=== PATIENT | male | born 1960 | race Caucasian/White ===

== ENCOUNTER 2017-08-04 09:27 | Inpatient (IN) | payer OTHER ==
[2017-08-04 12:55] VITALS: BMI 25.4
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
[2017-08-04] MEDS ORDERED: diphenhydrAMINE HCL 50 MG CAPSULE PO PRN (15:24)
[2017-08-04] MEDS ORDERED: MAGNESIUM HYDROX 2400MG/30ML ORAL SUSPENSION 30 ML CUP PO PRN (15:24)
[2017-08-04] MEDS ORDERED: guaiFENesin/D-METHORPHAN HB 10 ML UNIT-DOSE CUPS PO PRN (15:24)
[2017-08-04] MEDS ORDERED: MENTHOL/PHENOL 1 EACH UD MM PRN (15:24)
[2017-08-04] MEDS ORDERED: MAG HYDROX/AL HYDROX/SIMETH 30 ML UNIT-DOSE CUP PO PRN (15:24)
[2017-08-04] MEDS ORDERED: hydrOXYzine PAMOATE 50 MG CAPSULE (FP) PO PRN (15:24)
[2017-08-04] MEDS ORDERED: P-EPHED 60MG/TRIPROLIDI 2.5MG TABLET PO PRN (15:24)
[2017-08-04] MEDS ORDERED: IBUPROFEN 400 MG TABLET (FP) PO PRN (15:24)
[2017-08-04] MEDS ORDERED: MAGNESIUM CITRATE 300 ML BOTTLE PO PRN (15:24)
[2017-08-04] MEDS ORDERED: ACETAMINOPHEN 325 MG TABLET (FP) PO PRN (15:24)
[2017-08-04] MEDS ORDERED: chlordiazePOXIDE HCL 25 MG CAPSULE PO PRN (15:24)
[2017-08-04] MEDS ORDERED: LOPERAMIDE HCL 2 MG CAPSULE PO PRN (15:24)
[2017-08-04] MEDS ORDERED: NICOTINE POLACRILEX 4 MG GUM BC PRN (15:24)
[2017-08-04] MEDS ORDERED: ALBUTEROL SO4 18 GM HFA INHALER IH PRN (15:26)
[2017-08-04] MEDS ORDERED: chlordiazePOXIDE HCL 25 MG CAPSULE PO ONE (16:00)
[2017-08-04] MEDS: chlordiazePOXIDE HCL 25 MG CAPSULE PO SCH ×2 (17:40→22:22)
[2017-08-04] MEDS: THIAMINE HCL 100 MG TABLET (FP) PO SCH (22:22)
[2017-08-05] MEDS ORDERED: ALBUTEROL SO4 2.5/IPRATROPIUM 0.5 INH SOL 3 ML VIAL.NEB. NEB PRN (03:22)
[2017-08-05] MEDS: chlordiazePOXIDE HCL 25 MG CAPSULE PO SCH ×4 (05:53→22:18)
[2017-08-05 09:22] LABS: MCHC 32.9 g/dl (32.0-35.9); MEAN CELL VOLUME 82.1 fl (80-96); MEAN PLT VOLUME 9.2 fl (7.5-11.1); PLATELET COUNT 257 K/MM3 (134-434); RDW 16.2 % (11.9-15.9); WHITE BLOOD COUNT 9.6 K/mm3 (4.0-10.0)
--- NOTE | 2017-08-05 10:11 | PN ---
[facility] CIWA - CIWA Score Nausea/Vomitin-No Nausea/No Vomiting Muscle Tremors: 4-Moderate,w/Arms Extend Anxiety: 3 Agitation: 3 Paroxysmal Sweats: 3 Orientation: 1-Uncertain about Date Tacttile Disturbances: 0-None Auditory Disturbances: 0-None Visual Disturbances: 0-None Headache: 0-None Present CIWA-Ar Total Score: 14 BHS Progress Note (SOAP) Subjective: Anxiety,tremors,sweating,interrupted sleep,restless Objective: 08/05/17 10:10 Vital Signs - 8 hr 08/05/17 08/05/17 06:00 09:48 Temperature 99.7 F H 96.7 F L Pulse Rate 74 105 H Respiratory 18 18 Rate Blood Pressure 140/69 133/67 Laboratory Last Values WBC 9.6 K/mm3 (4.0-10.0) 08/05/17 06:00 RBC 5.00 M/mm3 (4.00-5.60) 08/05/17 06:00 Hgb 13.5 GM/dL (11.7-16.9) D 08/05/17 06:00 Hct 41.0 % (35.4-49) 08/05/17 06:00 MCV 82.1 fl (80-96) 08/05/17 06:00 MCH 27.0 pg (25.7-33.7) 08/05/17 06:00 MCHC 32.9 g/dl (32.0-35.9) 08/05/17 06:00 RDW 16.2 % (11.9-15.9) H 08/05/17 06:00 Plt Count 257 K/MM3 (134-434) 08/05/17 06:00 MPV 9.2 fl (7.5-11.1) D 08/05/17 06:00 labs noted Assessment: 08/05/17 10:10 Withdrawal sx. Plan: Continue detox
--- NOTE | 2017-08-05 10:24 | CONSULT ---
[facility] Psychiatric Consult - Data Date of interview: 08/05/17 Admission source: [facility] for [facility] 56 y/o male seeking detox treatment on for alcohol and marijuana dependence.Patient is single without children,domiciled ([facility] residence),unemployed and supported on SSI benefits. Substance Abuse History: Discussed with patient.Mr Jauregui endorses a long standing history of alcohol abuse and sporadic use of marijuana (K2).Confirmed this [facility] report. Smoking history: Current every day smoker. Have you smoked in the past 12 months: Yes. Aproximately how many cigarettes per day: 30. Hx Chewing Tobacco Use: No. Initiated information on smoking cessation: Yes. ' Breaking Loose' booklet given: 08/04/17. - Substance & Tx. History. Hx Alcohol Use: Yes. Hx Substance Use: Yes. Substance Use Type: Alcohol, Marijuana. Hx Substance Use Treatment: Yes (last detox [facility] 2yrs ago). - Substances Abused. Alcohol-vodka/4 warren. Route: Oral. Frequency: Daily. Amount used: 1/2 pt./8 (24 oz.). Age of first use: 9. Date of Last Use: . K2. Route: Smoking. Frequency: 1-3 times last 30 days. Amount used : $10. Age of first use: 56. Date of Last Use: 08/02/17 Medical History: Hypertension,anemia,benign prostatic hyperplasia,withdrawal- related seizures,GERD and bronchial asthma. Psychiatric History: Onset of psychiatric disturbances : age [age].Patient reports a history of multiple psychiatric hospitalizations.He is known to [facility].Diagnosed with " Schizophrenia and Bipolar Disorder." Mr Jauregui gets his outpatient psychiatric services at the [facility] in the [place].States that olanzapine and klonopin are his medications.Not a reliable historian.Has no recollection of doses or date of most recent intake.Patient denies history of suicide attempts. Physical/Sexual Abuse/Trauma History: Patient denies. Additional Comment: Drug Screen is negative. Mental Status Exam - Mental Status Exam Alert and Oriented to: Time, Place, Person Cognitive Function: Grossly Intact Patient Appearance: Well Groomed (edentulous ; appears much older than his stated age) Mood: Withdrawn, Hopeful Affect: Appropriate, Normal Range Patient Behavior: Fatigued, Cooperative Speech Pattern: Clear (bilingual) Voice Loudness: Normal Thought Process: Goal Oriented Thought Disorder: Not Present Hallucinations: Denies Suicidal Ideation: Denies Homicidal Ideation: Denies Insight/Judgement: Poor Sleep: Well Appetite: Good Muscle strength/Tone: Normal Gait/Station: Normal Psychiatric Findings - Problem List ([place] 1, 2,3) (1) Alcohol dependence with uncomplicated withdrawal Current Visit: Yes Status: Acute (2) Nicotine dependence Current Visit: Yes Status: Acute Qualifiers: Nicotine product type: cigarettes Substance use status: in withdrawal Qualified Code(s): F17.213 - Nicotine dependence, cigarettes, with withdrawal; F17.213 - Nicotine dependence, cigarettes, with withdrawal (3) Asthma Current Visit: Yes Status: Chronic (4) Benign prostate hyperplasia Current Visit: Yes Status: Chronic Qualifiers: Lower urinary tract symptom detail: unspecified (5) Substance induced mood disorder Current Visit: Yes Status: Acute - Initial Treatment Plan Initial Treatment Plan: Psychoeducation.Detoxification.Observation.
[2017-08-05] MEDS: FERROUS SO4 325 MG TABLET (FP) PO SCH (10:42)
[2017-08-05] MEDS: PRENATAL VITAMINS W/ FOLIC ACID TABLET (FP) PO SCH (10:42)
[2017-08-05] MEDS: NICOTINE 21 MG/24 HOURS TOPICAL PATCH TD SCH (10:42)
[2017-08-05 10:48] LABS: ALBUMIN 3.4 g/dl (3.4-5.0); ANION GAP 13 (8-16); CALCIUM 8.7 mg/dL (8.5-10.1); CO2 22 mmol/L (21-32); GLUCOSE,RANDOM 78 mg/dL (74-106)
[2017-08-05 10:54] LABS: ALK PHOS 103 U/L (45-117); CREATININE 1.1 mg/dL (0.7-1.3); SGOT/AST 68 U/L (15-37); SGPT/ALT 50 U/L (12-78); TOT PROT 6.4 g/dl (6.4-8.2)
--- NOTE | 2017-08-05 13:22 | EKG ---
Test Reason : Blood Pressure : / mmHG Vent. Rate : 067 BPM Atrial Rate : 067 BPM P-R Int : 138 ms QRS Dur : 096 ms QT Int : 416 ms P-R-T Axes : 052 061 054 degrees QTc Int : 439 ms NORMAL SINUS RHYTHM NORMAL ECG NO PREVIOUS ECGS AVAILABLE Confirmed by YARED EVANS, DARRYL ([id number]) on 08/05/2017 1:21:45 PM Referred By: Confirmed By:DARRYL VAIL MD
[2017-08-05] MEDS: THIAMINE HCL 100 MG TABLET (FP) PO SCH (22:18)
[2017-08-06] MEDS: chlordiazePOXIDE HCL 25 MG CAPSULE PO SCH ×2 (05:54→10:07)
[2017-08-06] MEDS: FERROUS SO4 325 MG TABLET (FP) PO SCH (07:31)
[2017-08-06] MEDS: NICOTINE 21 MG/24 HOURS TOPICAL PATCH TD SCH (10:07)
[2017-08-06] MEDS: PRENATAL VITAMINS W/ FOLIC ACID TABLET (FP) PO SCH (10:07)
--- NOTE | 2017-08-06 15:12 | PN ---
S CIWA - CIWA Score Nausea/Vomitin Muscle Tremors: 4-Moderate,w/Arms Extend Anxiety: 4-Mod. Anxious/Guarded Agitation: 4-Moderately Restless Paroxysmal Sweats: 3 Orientation: 0-Oriented Tacttile Disturbances: 1-Very Mild Itch/Numbness Auditory Disturbances: 0-None Visual Disturbances: 0-None Headache: 4-Moderately Severe CIWA-Ar Total Score: 23 BHS Progress Note (SOAP) Subjective: Sweating, nausea, tremor, chills, headache (05/25), interrupted sleep Objective: 08/06/17 15:10 Last Vital Signs Temp Pulse Resp BP Pulse Ox 97.3 F L 87 18 124/63 08/06/17 13:10 08/06/17 13:10 08/06/17 13:10 08/06/17 13:10 Laboratory Tests 08/05/17 08/05/17 08/05/17 06:00 06:00 06:00 WBC 9.6 RBC 5.00 Hgb 13.5 D Hct 41.0 MCV 82.1 MCH 27.0 MCHC 32.9 RDW 16.2 H Plt Count 257 MPV 9.2 D Sodium 139 Potassium 3.7 Chloride 104 Carbon Dioxide 22 Anion Gap 13 BUN 19 H Creatinine 1.1 Creat Clearance w eGFR > 60 Random Glucose 78 Calcium 8.7 Total Bilirubin 1.0 D AST 68 H D ALT 50 D Alkaline Phosphatase 103 D Total Protein 6.4 Albumin 3.4 RPR Titer Nonreactive Labs noted Assessment: 08/06/17 15:11 Withdrawal symptoms Plan: Continue detox
[2017-08-06] MEDS: chlordiazePOXIDE 5 MG CAPSULE PO SCH ×2 (17:10→22:18)
[2017-08-06 17:43] LABS: URINE APPEARANCE CLEAR; URINE BILIRUBIN NEGATIVE (NEGATIVE); URINE BLOOD NEGATIVE (NEGATIVE); URINE COLOR YELLOW; URINE GLUCOSE (UA) NEGATIVE (NEGATIVE); URINE KETONE NEGATIVE (NEGATIVE); URINE NITRITE NEGATIVE (NEGATIVE); URINE PROTEIN NEGATIVE (NEGATIVE); URINE UROBILINOGEN NEGATIVE mg/dL (0.2-1.0)
[2017-08-06 19:12] LABS: URINE LEUK ESTERASE Negative (NEGATIVE)
[2017-08-06] MEDS: THIAMINE HCL 100 MG TABLET (FP) PO SCH (22:17)
[2017-08-07] MEDS: chlordiazePOXIDE 5 MG CAPSULE PO SCH ×2 (05:55→10:25)
[2017-08-07] MEDS: FERROUS SO4 325 MG TABLET (FP) PO SCH (07:13)
[2017-08-07] MEDS: PRENATAL VITAMINS W/ FOLIC ACID TABLET (FP) PO SCH (10:25)
[2017-08-07] MEDS: NICOTINE 21 MG/24 HOURS TOPICAL PATCH TD SCH (10:25)
--- NOTE | 2017-08-07 11:38 | PN ---
BHS Progress Note (SOAP) Subjective: OOB WITH STAEDY GAIT. ALERT O X 3. DECREASED TREMORS. Objective: 08/07/17 11:37 Vital Signs Temperature 96.7 F L 08/07/17 10:19 Pulse Rate 72 08/07/17 10:19 Respiratory Rate 16 08/07/17 10:19 Blood Pressure 125/72 08/07/17 10:19 O2 Sat by Pulse Oximetry (%) Laboratory Last Values WBC 9.6 K/mm3 (4.0-10.0) 08/05/17 06:00 RBC 5.00 M/mm3 (4.00-5.60) 08/05/17 06:00 Hgb 13.5 GM/dL (11.7-16.9) D 08/05/17 06:00 Hct 41.0 % (35.4-49) 08/05/17 06:00 MCV 82.1 fl (80-96) 08/05/17 06:00 MCH 27.0 pg (25.7-33.7) 08/05/17 06:00 MCHC 32.9 g/dl (32.0-35.9) 08/05/17 06:00 RDW 16.2 % (11.9-15.9) H 08/05/17 06:00 Plt Count 257 K/MM3 (134-434) 08/05/17 06:00 MPV 9.2 fl (7.5-11.1) D 08/05/17 06:00 Sodium 139 mmol/L (136-145) 08/05/17 06:00 Potassium 3.7 mmol/L (3.5-5.1) 08/05/17 06:00 Chloride 104 mmol/L (98-107) 08/05/17 06:00 Carbon Dioxide 22 mmol/L (21-32) 08/05/17 06:00 Anion Gap 13 (8-16) 08/05/17 06:00 BUN 19 mg/dL (7-18) H 08/05/17 06:00 Creatinine 1.1 mg/dL (0.7-1.3) 08/05/17 06:00 Creat Clearance w eGFR > 60 (>60) 08/05/17 06:00 Random Glucose 78 mg/dL (74-106) 08/05/17 06:00 Calcium 8.7 mg/dL (8.5-10.1) 08/05/17 06:00 Total Bilirubin 1.0 mg/dL (0.2-1.0) D 08/05/17 06:00 AST 68 U/L (15-37) H D 08/05/17 06:00 ALT 50 U/L (12-78) D 08/05/17 06:00 Alkaline Phosphatase 103 U/L (45-117) D 08/05/17 06:00 Total Protein 6.4 g/dl (6.4-8.2) 08/05/17 06:00 Albumin 3.4 g/dl (3.4-5.0) 08/05/17 06:00 Urine Color Yellow 08/06/17 11:10 Urine Appearance Clear 08/06/17 11:10 Urine pH 7.0 (5.0-8.0) 08/06/17 11:10 Ur Specific [place] 1.015 (1.005-1.025) 08/06/17 11:10 Urine Protein Negative (NEGATIVE) 08/06/17 11:10 Urine Glucose (UA) Negative (NEGATIVE) 08/06/17 11:10 Urine Ketones Negative (NEGATIVE) 08/06/17 11:10 Urine Blood Negative (NEGATIVE) 08/06/17 11:10 Urine Nitrite Negative (NEGATIVE) 08/06/17 11:10 Urine Bilirubin Negative (NEGATIVE) 08/06/17 11:10 Urine Urobilinogen Negative mg/dL (0.2-1.0) 08/06/17 11:10 Ur Leukocyte Esterase Negative (NEGATIVE) 08/06/17 11:10 RPR Titer Nonreactive (NONREACTIVE) 08/05/17 06:00 Assessment: 08/07/17 11:37 DECREASED WITHDRAWAL SX Plan: CONTINUE DETOX
[2017-08-07] MEDS: chlordiazePOXIDE HCL 10 MG CAPSULE PO SCH ×2 (17:25→22:09)
[2017-08-07] MEDS: THIAMINE HCL 100 MG TABLET (FP) PO SCH (22:09)
[2017-08-08] MEDS: chlordiazePOXIDE HCL 10 MG CAPSULE PO SCH (05:48)
[2017-08-08] MEDS: FERROUS SO4 325 MG TABLET (FP) PO SCH (07:47)
[2017-08-08 09:33] VITALS: BP 119/74; PULSE 70; TEMP 96.8
--- NOTE | 2017-08-08 11:50 | DS ---
[facility] Detox Discharge Summary Admission Date: 08/04/17 Discharge Date: 08/08/17 - History Present History: Alcohol Dependence Additional Comments: DETOX COMPLETED. ALERT O X 3. NAD. PT TO FOLLOW UP WITH PCP AT [facility] FOR MEDICAL MANAGEMENT OF COMORBID CONDITIONS. Pertinent Past History: BPH HX [place] ASTHMA SEIZURE HX ANEMIA - Physical Exam Results Vital Signs: Vital Signs Temperature 96.8 F L 08/08/17 09:32 Pulse Rate 70 08/08/17 09:32 Respiratory Rate 18 08/08/17 09:32 Blood Pressure 119/74 08/08/17 09:32 O2 Sat by Pulse Oximetry (%) Pertinent Admission Physical Exam Findings: WITHDRAWAL SX Laboratory Last Values WBC 9.6 K/mm3 (4.0-10.0) 08/05/17 06:00 RBC 5.00 M/mm3 (4.00-5.60) 08/05/17 06:00 Hgb 13.5 GM/dL (11.7-16.9) D 08/05/17 06:00 Hct 41.0 % (35.4-49) 08/05/17 06:00 MCV 82.1 fl (80-96) 08/05/17 06:00 MCH 27.0 pg (25.7-33.7) 08/05/17 06:00 MCHC 32.9 g/dl (32.0-35.9) 08/05/17 06:00 RDW 16.2 % (11.9-15.9) H 08/05/17 06:00 Plt Count 257 K/MM3 (134-434) 08/05/17 06:00 MPV 9.2 fl (7.5-11.1) D 08/05/17 06:00 Sodium 139 mmol/L (136-145) 08/05/17 06:00 Potassium 3.7 mmol/L (3.5-5.1) 08/05/17 06:00 Chloride 104 mmol/L (98-107) 08/05/17 06:00 Carbon Dioxide 22 mmol/L (21-32) 08/05/17 06:00 Anion Gap 13 (8-16) 08/05/17 06:00 BUN 19 mg/dL (7-18) H 08/05/17 06:00 Creatinine 1.1 mg/dL (0.7-1.3) 08/05/17 06:00 Creat Clearance w eGFR > 60 (>60) 08/05/17 06:00 Random Glucose 78 mg/dL (74-106) 08/05/17 06:00 Calcium 8.7 mg/dL (8.5-10.1) 08/05/17 06:00 Total Bilirubin 1.0 mg/dL (0.2-1.0) D 08/05/17 06:00 AST 68 U/L (15-37) H D 08/05/17 06:00 ALT 50 U/L (12-78) D 08/05/17 06:00 Alkaline Phosphatase 103 U/L (45-117) D 08/05/17 06:00 Total Protein 6.4 g/dl (6.4-8.2) 08/05/17 06:00 Albumin 3.4 g/dl (3.4-5.0) 08/05/17 06:00 Urine Color Yellow 08/06/17 11:10 Urine Appearance Clear 08/06/17 11:10 Urine pH 7.0 (5.0-8.0) 08/06/17 11:10 Ur Specific [place] 1.015 (1.005-1.025) 08/06/17 11:10 Urine Protein Negative (NEGATIVE) 08/06/17 11:10 Urine Glucose (UA) Negative (NEGATIVE) 08/06/17 11:10 Urine Ketones Negative (NEGATIVE) 08/06/17 11:10 Urine Blood Negative (NEGATIVE) 08/06/17 11:10 Urine Nitrite Negative (NEGATIVE) 08/06/17 11:10 Urine Bilirubin Negative (NEGATIVE) 08/06/17 11:10 Urine Urobilinogen Negative mg/dL (0.2-1.0) 08/06/17 11:10 Ur Leukocyte Esterase Negative (NEGATIVE) 08/06/17 11:10 RPR Titer Nonreactive (NONREACTIVE) 08/05/17 06:00 - Treatment Hospital Course: Detox Protocol Followed, Detoxed Safely, Responded well, Discharged Condition Good - Medication Discharge Medications: Ambulatory Orders Albuterol Sulfate Inhaler - [Ventolin Hfa *Inhaler*] 2 inh IH Q4H PRN 12/10/12 Ferrous Sulfate [Feosol] 325 mg PO DAILY 12/10/12 Trazodone HCl 50 mg PO HS 12/10/12 - Diagnosis (1) Alcohol dependence with uncomplicated withdrawal Status: Acute (2) Nicotine dependence Status: Acute Qualifiers: Nicotine product type: cigarettes Substance use status: in withdrawal Qualified Code(s): F17.213 - Nicotine dependence, cigarettes, with withdrawal; F17.213 - Nicotine dependence, cigarettes, with withdrawal (3) Asthma Status: Chronic (4) Benign prostate hyperplasia Status: Chronic Qualifiers: Lower urinary tract symptom detail: unspecified (5) Seizure Status: Suspected (6) hearing loss both ears post head trauma Status: Chronic (7) History of anemia Status: Chronic - AMA Did Patient Leave Against Medical Advice: No
== END 2017-08-08 09:30 | disposition home or self-care (01) | DRG 775 ==
LOC: YASAS 09:27 → Y3N 15:28
PROVIDERS: ADMIT Internal Medicine; ATTEND Internal Medicine
PROC: HZ2ZZZZ Detoxification Services for Substance Abuse Treatment (ICD-10-PCS; principal; 2017-08-04)
DX: F10.230 Alcohol dependence with withdrawal, uncomplicated (principal); F17.213 Nicotine dependence, cigarettes, with withdrawal; F31.9 Bipolar disorder, unspecified; F19.24 Other psychoactive substance dependence with psychoactive substance-induced mood disorder; I10 Essential (primary) hypertension; J45.909 Unspecified asthma, uncomplicated; N40.0 Benign prostatic hyperplasia without lower urinary tract symptoms; H91.93 Unspecified hearing loss, bilateral; K21.9 Gastro-esophageal reflux disease without esophagitis; D64.9 Anemia, unspecified; Z86.69 Personal history of other diseases of the nervous system and sense organs; Z91.013 Allergy to seafood; Z88.8 Allergy status to other drugs, medicaments and biological substances
CPT/HCPCS: 36415; 80053; 81003; 85027; 86593; 93005; 93010; 94640

== ENCOUNTER 2020-08-24 11:32 | Inpatient (IN) | payer OTHER ==
[2020-08-24] MEDS ORDERED: LACTATED RINGERS SOLUTION 1,000 ML/1,000 ML INFUS.BAG IV STA (14:48)
[2020-08-24 15:10] LABS: BASO % 0.7 % (0-2.0); EOS % 3.9 % (0-4.5); HEMATOCRIT 33.5 % (35.4-49); HEMOGLOBIN 11.3 GM/dL (11.7-16.9); LYMPH % 17.7 % (8-40); MCH 28.3 pg (25.7-33.7); MCHC 33.6 g/dl (32.0-35.9); MEAN CELL VOLUME 84.3 fl (80-96); MEAN PLT VOLUME 7.5 fl (7.5-11.1); MONO % 9.5 % (3.8-10.2); NEUT % 68.2 % (42.8-82.8); PLATELET COUNT 212 K/MM3 (134-434); RBC 3.98 M/mm3 (4.00-5.60); RDW 14.5 % (11.9-15.9); WHITE BLOOD COUNT 7.4 K/mm3 (4.0-10.0)
[2020-08-24 15:46] LABS: CHLORIDE 107 mmol/L (98-107); POTASSIUM 3.7 mmol/L (3.5-5.1); SODIUM 139 mmol/L (136-145)
[2020-08-24 15:48] LABS: ALBUMIN 2.7 g/dl (3.4-5.0); ANION GAP 7 MMOL/L (8-16); BLOOD UREA NITROGEN 16.2 mg/dL (7-18); CALCIUM 8.6 mg/dL (8.5-10.1); CO2 26 mmol/L (21-32); GLUCOSE,RANDOM 103 mg/dL (74-106)
[2020-08-24 15:51] LABS: SGOT/AST 14 U/L (15-37); SGPT/ALT 14 U/L (13-61)
[2020-08-24 15:52] LABS: CREATININE 1.3 mg/dL (0.55-1.3)
[2020-08-24 15:53] LABS: BILIRUBIN,TOTAL 0.5 mg/dL (0.2-1); TOT PROT 5.8 g/dl (6.4-8.2)
[2020-08-24 15:54] LABS: ALK PHOS 82 U/L (45-117)
[2020-08-24] MEDS ORDERED: FOLIC ACID 1 MG TABLET (FP) PO ONE (23:23)
[2020-08-24] MEDS ORDERED: THIAMINE HCL 100 MG TABLET (FP) PO ONE (23:23)
[2020-08-24] MEDS ORDERED: BISMUTH SUBSALICYLATE 524 MG/30 ML UD PO PRN (23:25)
[2020-08-24] MEDS ORDERED: LORazepam 0.5 MG TABLET PO PRN (23:25)
[2020-08-24] MEDS ORDERED: ALBUTEROL SO4 HFA INHALER IH PRN (23:25)
[2020-08-25] MEDS ORDERED: THIAMINE HCL 100 MG TABLET (FP) ONE (00:33)
[2020-08-25] MEDS ORDERED: FOLIC ACID 1 MG TABLET (FP) ONE (00:33)
[2020-08-25] MEDS ORDERED: chlordiazePOXIDE HCL 10 MG CAPSULE PO SCH (05:00)
[2020-08-25] MEDS ORDERED: chlordiazePOXIDE 5 MG CAPSULE ONE (05:32)
[2020-08-25 06:41] LABS: PH,URINE 7.5 (5.0-8.0); URINE APPEARANCE CLEAR; URINE BILIRUBIN NEGATIVE (NEGATIVE); URINE COLOR YELLOW; URINE GLUCOSE (UA) NEGATIVE (NEGATIVE); URINE KETONE NEGATIVE (NEGATIVE); URINE LEUK ESTERASE NEGATIVE (NEGATIVE); URINE NITRITE NEGATIVE (NEGATIVE); URINE PROTEIN NEGATIVE (NEGATIVE); URINE UROBILINOGEN 0.2 mg/dL (0.2-1.0)
[2020-08-25 06:48] LABS: COCAINE, UR NEGATIVE ng/ml (CUTOFF=300); URINE BARBITURATES NEGATIVE ng/ml (CUTOFF=200)
[2020-08-25 06:49] LABS: METHADONE, UR NEGATIVE ng/ml (CUTOFF=300); OPIATES, URI NEGATIVE ng/ml (CUTOFF=300); PHENCYCLIDINE,URINE NEGATIVE ng/ml (CUTOFF=25)
[2020-08-25 07:12] LABS: URINE AMPHETAMINES NEGATIVE ng/ml (CUTOFF=500)
[2020-08-25 07:18] LABS: URINE BENZODIAZEPINES POSITIVE ng/ml (CUTOFF=200)
[2020-08-25 07:25] LABS: BASO % 0.6 % (0-2.0); EOS % 5.5 % (0-4.5); HEMATOCRIT 39.1 % (35.4-49); LYMPH % 25.6 % (8-40); MCH 27.9 pg (25.7-33.7); MCHC 33.2 g/dl (32.0-35.9); MEAN CELL VOLUME 84.1 fl (80-96); MEAN PLT VOLUME 8.1 fl (7.5-11.1); MONO % 7.2 % (3.8-10.2); NEUT % 61.1 % (42.8-82.8); PLATELET COUNT 230 K/MM3 (134-434); RBC 4.65 M/mm3 (4.00-5.60); RDW 14.3 % (11.9-15.9)
[2020-08-25 07:41] LABS: ALBUMIN 2.9 g/dl (3.4-5.0); BLOOD UREA NITROGEN 13.5 mg/dL (7-18)
[2020-08-25 07:42] LABS: CALCIUM 9.2 mg/dL (8.5-10.1)
[2020-08-25 07:43] LABS: MAGNESIUM 1.9 mg/dL (1.8-2.4)
[2020-08-25 07:44] LABS: PHOSPHOROUS 3.9 mg/dL (2.5-4.9)
[2020-08-25 07:45] LABS: BILIRUBIN,TOTAL 0.8 mg/dL (0.2-1)
[2020-08-25 07:46] LABS: TOT PROT 6.5 g/dl (6.4-8.2)
[2020-08-25] MEDS ORDERED: ENOXAPARIN NA (PORCINE) 40 MG/0.4 ML DISP.SYRIN SQ ONE (09:23)
[2020-08-25] MEDS: NICOTINE 21 MG/24 HOURS TOPICAL PATCH TD SCH (09:43)
[2020-08-25] MEDS: ENOXAPARIN NA (PORCINE) 40 MG/0.4 ML DISP.SYRIN SQ SCH (09:43)
[2020-08-25] MEDS: FOLIC ACID 1 MG TABLET (FP) PO SCH (17:28)
[2020-08-25] MEDS: MULTIVITAMINS (DAILY MVI) TABLET (FP) PO SCH (17:28)
[2020-08-25] MEDS: THIAMINE HCL 100 MG TABLET (FP) PO SCH (17:29)
[2020-08-25] MEDS: MELATONIN 5 MG TABLETS PO SCH (22:26)
[2020-08-26] MEDS ORDERED: chlordiazePOXIDE HCL 10 MG CAPSULE PO ONE (05:00)
[2020-08-26 08:39] LABS: BASO % 0.7 % (0-2.0); EOS % 8.4 % (0-4.5); HEMOGLOBIN 11.9 GM/dL (11.7-16.9); MCH 28.2 pg (25.7-33.7); MCHC 33.9 g/dl (32.0-35.9); MEAN CELL VOLUME 83.2 fl (80-96); MEAN PLT VOLUME 7.9 fl (7.5-11.1); MONO % 8.5 % (3.8-10.2); NEUT % 64.4 % (42.8-82.8); PLATELET COUNT 275 K/MM3 (134-434); RBC 4.21 M/mm3 (4.00-5.60); RDW 14.2 % (11.9-15.9); WHITE BLOOD COUNT 7.8 K/mm3 (4.0-10.0)
[2020-08-26 09:14] LABS: POTASSIUM 4.4 mmol/L (3.5-5.1)
[2020-08-26 09:15] LABS: ALBUMIN 2.6 g/dl (3.4-5.0)
[2020-08-26 09:16] LABS: BLOOD UREA NITROGEN 14.8 mg/dL (7-18); MAGNESIUM 2.1 mg/dL (1.8-2.4)
[2020-08-26 09:20] LABS: PHOSPHOROUS 4.2 mg/dL (2.5-4.9)
[2020-08-26 09:21] LABS: BILIRUBIN,TOTAL 0.6 mg/dL (0.2-1); TOT PROT 5.9 g/dl (6.4-8.2)
[2020-08-26] MEDS: ENOXAPARIN NA (PORCINE) 40 MG/0.4 ML DISP.SYRIN SQ SCH (09:30)
[2020-08-26] MEDS: NICOTINE 21 MG/24 HOURS TOPICAL PATCH TD SCH (09:30)
[2020-08-26] MEDS: MULTIVITAMINS (DAILY MVI) TABLET (FP) PO SCH (09:31)
[2020-08-26] MEDS: THIAMINE HCL 100 MG TABLET (FP) PO SCH (09:31)
[2020-08-26] MEDS: FOLIC ACID 1 MG TABLET (FP) PO SCH (09:31)
[2020-08-26 13:07] VITALS: BMI 19.9
[2020-08-26] MEDS: OXcarbazepine 150 MG TABLET (UD) PO SCH ×2 (13:39→23:04)
[2020-08-26] MEDS ORDERED: PT OWN MED DRAWER 7, Y5N ONE ×3 (14:09→23:20)
[2020-08-26] MEDS: MELATONIN 5 MG TABLETS PO SCH (23:03)
[2020-08-26] MEDS: CARBAMIDE PEROXIDE 6.5% OTIC 15 ML BOTTLE AU SCH (23:04)
[2020-08-27] MEDS ORDERED: chlordiazePOXIDE HCL 10 MG CAPSULE PO PRN
[2020-08-27] MEDS ORDERED: PT OWN MED DRAWER 7, Y5N ONE ×2 (10:52→21:23)
[2020-08-27] MEDS: NICOTINE 21 MG/24 HOURS TOPICAL PATCH TD SCH (11:00)
[2020-08-27] MEDS: ENOXAPARIN NA (PORCINE) 40 MG/0.4 ML DISP.SYRIN SQ SCH (11:00)
[2020-08-27] MEDS: THIAMINE HCL 100 MG TABLET (FP) PO SCH (11:00)
[2020-08-27] MEDS: OXcarbazepine 150 MG TABLET (UD) PO SCH ×2 (11:00→21:24)
[2020-08-27] MEDS: FOLIC ACID 1 MG TABLET (FP) PO SCH (11:00)
[2020-08-27] MEDS: MULTIVITAMINS (DAILY MVI) TABLET (FP) PO SCH (11:00)
[2020-08-27] MEDS: CARBAMIDE PEROXIDE 6.5% OTIC 15 ML BOTTLE AU SCH ×2 (11:06→21:25)
[2020-08-27] MEDS: MELATONIN 5 MG TABLETS PO SCH (21:24)
[2020-08-28 09:12] LABS: BASO % 0.6 % (0-2.0); EOS % 5.8 % (0-4.5); HEMATOCRIT 34.5 % (35.4-49); HEMOGLOBIN 11.5 GM/dL (11.7-16.9); LYMPH % 29.7 % (8-40); MCH 27.5 pg (25.7-33.7); MCHC 33.4 g/dl (32.0-35.9); MEAN CELL VOLUME 82.3 fl (80-96); MEAN PLT VOLUME 7.5 fl (7.5-11.1); MONO % 7.6 % (3.8-10.2); NEUT % 56.3 % (42.8-82.8); PLATELET COUNT 271 K/MM3 (134-434); RBC 4.19 M/mm3 (4.00-5.60); RDW 13.8 % (11.9-15.9); WHITE BLOOD COUNT 5.8 K/mm3 (4.0-10.0)
[2020-08-28 09:32] LABS: POTASSIUM 4.3 mmol/L (3.5-5.1)
[2020-08-28 09:36] LABS: ALBUMIN 2.8 g/dl (3.4-5.0); BLOOD UREA NITROGEN 28.1 mg/dL (7-18); CALCIUM 8.9 mg/dL (8.5-10.1); INR 0.98 (0.83-1.09); MAGNESIUM 2.1 mg/dL (1.8-2.4); PROTHROMBIN TIME (PATIENT) 12.1 SEC (9.7-13.0)
[2020-08-28 09:37] LABS: ACTIVATED PTT 29.9 SECONDS (25.2-36.5)
[2020-08-28] MEDS ORDERED: PT OWN MED DRAWER 7, Y5N ONE ×2 (09:37→21:15)
[2020-08-28 09:39] LABS: CREATININE 1.1 mg/dL (0.55-1.3)
[2020-08-28 09:40] LABS: PHOSPHOROUS 4.2 mg/dL (2.5-4.9)
[2020-08-28 09:41] LABS: BILIRUBIN,TOTAL 0.3 mg/dL (0.2-1); TOT PROT 6.2 g/dl (6.4-8.2)
[2020-08-28] MEDS: FOLIC ACID 1 MG TABLET (FP) PO SCH (10:20)
[2020-08-28] MEDS: NICOTINE 21 MG/24 HOURS TOPICAL PATCH TD SCH (10:20)
[2020-08-28] MEDS: OXcarbazepine 150 MG TABLET (UD) PO SCH ×2 (10:21→21:20)
[2020-08-28] MEDS: CARBAMIDE PEROXIDE 6.5% OTIC 15 ML BOTTLE AU SCH ×2 (10:21→21:19)
[2020-08-28] MEDS: ENOXAPARIN NA (PORCINE) 40 MG/0.4 ML DISP.SYRIN SQ SCH (10:21)
[2020-08-28] MEDS: MULTIVITAMINS (DAILY MVI) TABLET (FP) PO SCH (10:21)
[2020-08-28] MEDS: THIAMINE HCL 100 MG TABLET (FP) PO SCH (10:21)
[2020-08-28] MEDS: MELATONIN 5 MG TABLETS PO SCH (21:18)
[2020-08-29 09:12] LABS: BASO % 0.6 % (0-2.0); EOS % 3.4 % (0-4.5); HEMATOCRIT 35.1 % (35.4-49); HEMOGLOBIN 11.7 GM/dL (11.7-16.9); LYMPH % 26.4 % (8-40); MCH 27.6 pg (25.7-33.7); MCHC 33.4 g/dl (32.0-35.9); MEAN CELL VOLUME 82.7 fl (80-96); MEAN PLT VOLUME 7.6 fl (7.5-11.1); MONO % 6.6 % (3.8-10.2); PLATELET COUNT 308 K/MM3 (134-434); RBC 4.24 M/mm3 (4.00-5.60); RDW 14.5 % (11.9-15.9); WHITE BLOOD COUNT 7.3 K/mm3 (4.0-10.0)
[2020-08-29] MEDS ORDERED: PT OWN MED DRAWER 7, Y5N ONE ×2 (09:45→21:28)
[2020-08-29] MEDS: MULTIVITAMINS (DAILY MVI) TABLET (FP) PO SCH (09:49)
[2020-08-29] MEDS: FOLIC ACID 1 MG TABLET (FP) PO SCH (09:49)
[2020-08-29] MEDS: THIAMINE HCL 100 MG TABLET (FP) PO SCH (09:50)
[2020-08-29] MEDS: NICOTINE 21 MG/24 HOURS TOPICAL PATCH TD SCH (09:50)
[2020-08-29] MEDS: ENOXAPARIN NA (PORCINE) 40 MG/0.4 ML DISP.SYRIN SQ SCH (09:50)
[2020-08-29] MEDS: CARBAMIDE PEROXIDE 6.5% OTIC 15 ML BOTTLE AU SCH ×2 (09:50→21:31)
[2020-08-29] MEDS: OXcarbazepine 150 MG TABLET (UD) PO SCH ×2 (09:50→21:31)
[2020-08-29 09:53] LABS: POTASSIUM 4.2 mmol/L (3.5-5.1)
[2020-08-29 10:10] LABS: ALBUMIN 2.7 g/dl (3.4-5.0); BLOOD UREA NITROGEN 28.7 mg/dL (7-18); CALCIUM 8.8 mg/dL (8.5-10.1)
[2020-08-29 10:11] LABS: MAGNESIUM 2.1 mg/dL (1.8-2.4)
[2020-08-29 10:13] LABS: CREATININE 1.1 mg/dL (0.55-1.3)
[2020-08-29 10:14] LABS: PHOSPHOROUS 4.2 mg/dL (2.5-4.9)
[2020-08-29 10:15] LABS: BILIRUBIN,TOTAL 0.4 mg/dL (0.2-1); TOT PROT 6.3 g/dl (6.4-8.2)
[2020-08-29] MEDS: MELATONIN 5 MG TABLETS PO SCH (21:30)
[2020-08-30] MEDS ORDERED: PT OWN MED DRAWER 7, Y5N ONE (10:21)
[2020-08-30] MEDS: CARBAMIDE PEROXIDE 6.5% OTIC 15 ML BOTTLE AU SCH ×2 (10:24→21:52)
[2020-08-30] MEDS: FOLIC ACID 1 MG TABLET (FP) PO SCH (10:24)
[2020-08-30] MEDS: NICOTINE 21 MG/24 HOURS TOPICAL PATCH TD SCH (10:24)
[2020-08-30] MEDS: ENOXAPARIN NA (PORCINE) 40 MG/0.4 ML DISP.SYRIN SQ SCH ×2 (10:24→10:29)
[2020-08-30] MEDS: MULTIVITAMINS (DAILY MVI) TABLET (FP) PO SCH (10:24)
[2020-08-30] MEDS: THIAMINE HCL 100 MG TABLET (FP) PO SCH (10:25)
[2020-08-30] MEDS: OXcarbazepine 150 MG TABLET (UD) PO SCH ×2 (10:25→21:52)
[2020-08-30] MEDS: MELATONIN 5 MG TABLETS PO SCH (21:51)
[2020-08-31] MEDS: ENOXAPARIN NA (PORCINE) 40 MG/0.4 ML DISP.SYRIN SQ SCH (09:59)
[2020-08-31] MEDS: CARBAMIDE PEROXIDE 6.5% OTIC 15 ML BOTTLE AU SCH ×2 (10:00→21:51)
[2020-08-31] MEDS: THIAMINE HCL 100 MG TABLET (FP) PO SCH (10:00)
[2020-08-31] MEDS: NICOTINE 21 MG/24 HOURS TOPICAL PATCH TD SCH (10:00)
[2020-08-31] MEDS: FOLIC ACID 1 MG TABLET (FP) PO SCH (10:00)
[2020-08-31] MEDS: OXcarbazepine 150 MG TABLET (UD) PO SCH ×2 (10:00→21:50)
[2020-08-31] MEDS: MULTIVITAMINS (DAILY MVI) TABLET (FP) PO SCH (10:00)
[2020-08-31] MEDS ORDERED: PT OWN MED DRAWER 7, Y5N ONE ×2 (10:05→20:50)
[2020-08-31] MEDS: MELATONIN 5 MG TABLETS PO SCH (21:49)
[2020-08-31] MEDS ORDERED: CHLORHEXIDINE GLUCONATE 4% CLEANSER FOR DECOLONIZATION TP SCH (22:00)
[2020-09-01] MEDS ORDERED: PROPOFOL 20 ML ONE ×2 (07:26→09:57)
[2020-09-01] MEDS ORDERED: fentaNYL CITRATE 250 MCG/5 ML VIAL ONE ×2 (07:26→09:19)
[2020-09-01] MEDS ORDERED: LIDOCAINE HCL/PF 2% SDV 5ML VIAL ONE (07:26)
[2020-09-01] MEDS ORDERED: ONDANSETRON 4 MG/2 ML VIAL ONE (07:26)
[2020-09-01] MEDS ORDERED: MIDAZOLAM HCL 2 MG/2 ML SINGLE DOSE VIAL ONE (07:26)
[2020-09-01] MEDS ORDERED: DEXAMETHASONE SOD PHOSPHATE 4 MG/1 ML VIAL ONE (07:26)
[2020-09-01] MEDS ORDERED: ROCURONIUM BROMIDE 50 MG/5 ML SYRINGE ONE ×2 (07:26→09:29)
[2020-09-01] MEDS ORDERED: SUCCINYLCHOLINE CHLORIDE 200 MG/10 ML SYRINGE ONE (07:29)
[2020-09-01] MEDS ORDERED: LIDOCAINE 1%/EPI 1:100000 (50 ML MULTI DOSE VIAL) ONE (07:32)
[2020-09-01] MEDS ORDERED: THROMBIN (BOVINE) 20,000 UNIT VIAL TP ONE (07:32)
[2020-09-01] MEDS ORDERED: BACITRACIN 15 GM TUBE TOPICAL OINTMENT ONE (07:32)
[2020-09-01] MEDS ORDERED: GENTAMICIN SO4 80 MG/2 ML VIAL ONE (07:32)
[2020-09-01] MEDS ORDERED: BUPIVACAINE HCL 100 ML ONE (07:50)
[2020-09-01 08:08] LABS: HEMATOCRIT 37.5 % (35.4-49); HEMOGLOBIN 12.5 GM/dL (11.7-16.9); MCH 27.7 pg (25.7-33.7); MCHC 33.2 g/dl (32.0-35.9); MEAN CELL VOLUME 83.3 fl (80-96); MEAN PLT VOLUME 7.4 fl (7.5-11.1); PLATELET COUNT 314 K/MM3 (134-434); RBC 4.51 M/mm3 (4.00-5.60); RDW 14.1 % (11.9-15.9); WHITE BLOOD COUNT 7.5 K/mm3 (4.0-10.0)
[2020-09-01 08:23] LABS: POTASSIUM 4.6 mmol/L (3.5-5.1)
[2020-09-01 08:25] LABS: ALBUMIN 2.9 g/dl (3.4-5.0); BLOOD UREA NITROGEN 31.2 mg/dL (7-18); CALCIUM 9.6 mg/dL (8.5-10.1); MAGNESIUM 2.7 mg/dL (1.8-2.4)
[2020-09-01 08:28] LABS: CREATININE 1.1 mg/dL (0.55-1.3)
[2020-09-01 08:29] LABS: PHOSPHOROUS 4.6 mg/dL (2.5-4.9)
[2020-09-01 08:30] LABS: BILIRUBIN,TOTAL 0.2 mg/dL (0.2-1); TOT PROT 6.7 g/dl (6.4-8.2)
[2020-09-01] MEDS ORDERED: VANCOMYCIN 1,000 MG VIAL (RESTRICTED TO ID ONLY) IVPB ONE (09:00)
[2020-09-01] MEDS ORDERED: ceFAZolin SODIUM 1 GM VIAL ONE ×2 (09:14→17:40)
[2020-09-01] MEDS ORDERED: VANCOMYCIN 1,000 MG VIAL (RESTRICTED TO ID ONLY) ONE (09:14)
[2020-09-01] MEDS ORDERED: ceFAZolin SODIUM 1 GM VIAL IVPB ONE (09:15)
[2020-09-01] MEDS ORDERED: LIDOCAINE 1%/EPI 1:100000 (50 ML MULTI DOSE VIAL) INF ONE (09:20)
[2020-09-01] MEDS ORDERED: BACITRACIN 50,000 UNITS VIAL TP ONE (09:59)
[2020-09-01] MEDS ORDERED: GENTAMICIN SO4 80 MG/2 ML VIAL IVPB ONE (10:00)
[2020-09-01] MEDS ORDERED: THROMBIN (BOVINE) 5,000 UNIT VIAL TP ONE (10:01)
[2020-09-01] MEDS ORDERED: NEOSTIGMINE METHYLSULFATE 0.5 MG/1 ML - 10 ML MDV ONE (10:25)
[2020-09-01] MEDS ORDERED: GLYCOPYRROLATE 0.2 MG/1 ML VIAL ONE (10:25)
[2020-09-01] MEDS ORDERED: ONDANSETRON 4 MG/2 ML VIAL IVPUSH PRN ×2 (11:01→12:37)
[2020-09-01] MEDS ORDERED: LACTATED RINGERS SOLUTION 1,000 ML IV SCH ×2 (11:15→12:37)
[2020-09-01] MEDS ORDERED: ACETAMINOPHEN 1000 MG/100 ML VIAL (NON FORMULARY) IVPB PRN ×2 (11:58→12:37)
[2020-09-01] MEDS ORDERED: ALBUTEROL SO4 HFA INHALER IH PRN (12:37)
[2020-09-01 13:45] LABS: BASO % 0.3 % (0-2.0); EOS % 0.1 % (0-4.5); HEMATOCRIT 34.6 % (35.4-49); HEMOGLOBIN 11.7 GM/dL (11.7-16.9); LYMPH % 4.8 % (8-40); MCH 28.1 pg (25.7-33.7); MCHC 33.9 g/dl (32.0-35.9); MEAN CELL VOLUME 83.1 fl (80-96); MEAN PLT VOLUME 8.3 fl (7.5-11.1); MONO % 0.7 % (3.8-10.2); NEUT % 94.1 % (42.8-82.8); PLATELET COUNT 323 K/MM3 (134-434); RBC 4.16 M/mm3 (4.00-5.60); RDW 14.4 % (11.9-15.9); WHITE BLOOD COUNT 12.1 K/mm3 (4.0-10.0)
[2020-09-01 13:56] LABS: INR 1.01 (0.83-1.09); PROTHROMBIN TIME (PATIENT) 12.4 SEC (9.7-13.0)
[2020-09-01 14:08] LABS: POTASSIUM 5.3 mmol/L (3.5-5.1)
[2020-09-01 14:10] LABS: ALBUMIN 2.7 g/dl (3.4-5.0); BLOOD UREA NITROGEN 28.8 mg/dL (7-18); CALCIUM 9.1 mg/dL (8.5-10.1)
[2020-09-01 14:11] LABS: MAGNESIUM 2.2 mg/dL (1.8-2.4)
[2020-09-01 14:14] LABS: CREATININE 1.3 mg/dL (0.55-1.3); PHOSPHOROUS 3.7 mg/dL (2.5-4.9)
[2020-09-01 14:15] LABS: BILIRUBIN,TOTAL 0.4 mg/dL (0.2-1)
[2020-09-01] MEDS: NICARDIPINE IVPB SCH (14:15)
[2020-09-01] MEDS: SODIUM CHLORIDE IVPB SCH (14:15)
[2020-09-01 14:22] LABS: PLATELET ESTIMATE NORMAL
[2020-09-01] MEDS: NICOTINE 21 MG/24 HOURS TOPICAL PATCH TD SCH (14:33)
[2020-09-01] MEDS: CARBAMIDE PEROXIDE 6.5% OTIC 15 ML BOTTLE AU SCH ×2 (14:33→23:12)
[2020-09-01] MEDS: THIAMINE HCL 100 MG TABLET (FP) PO SCH (14:33)
[2020-09-01] MEDS: MULTIVITAMINS (DAILY MVI) TABLET (FP) PO SCH (14:33)
[2020-09-01] MEDS: FOLIC ACID 1 MG TABLET (FP) PO SCH (14:33)
[2020-09-01] MEDS: OXcarbazepine 150 MG TABLET (UD) PO SCH ×2 (14:33→23:12)
[2020-09-01] MEDS: LACTATED RINGERS SOLUTION 1,000 ML IV SCH (14:35)
[2020-09-01] MEDS: LORazepam 2 MG/ML SDV VIAL IVPUSH PRN (16:25)
[2020-09-01] MEDS ORDERED: DEXTROSE 5%-WATER - 50 ML IVPB ONE (17:40)
[2020-09-01] MEDS: CEFAZOLIN 1 GM in DEXTROSE 5%-WATER - 50 ML IVPB SCH (17:44)
[2020-09-01] MEDS ORDERED: BACITRACIN 15 GM TUBE TOPICAL OINTMENT TP SCH (22:00)
[2020-09-01] MEDS: BACITRACIN 15 GM TUBE TOPICAL OINTMENT TP SCH (23:11)
[2020-09-02] MEDS ORDERED: dilTIAZem HCL 25 MG/5 ML - 5 ML VIAL ONE (00:16)
[2020-09-02] MEDS ORDERED: niCARdipine HCL 25 MG/10 ML AMPUL IVPB ONE (00:18)
[2020-09-02] MEDS: SODIUM CHLORIDE IVPB SCH ×7 (01:00→20:06)
[2020-09-02] MEDS: NICARDIPINE IVPB SCH ×7 (01:00→20:06)
[2020-09-02] MEDS ORDERED: DEXTROSE 5%-WATER - 50 ML IVPB ONE ×2 (02:25→08:52)
[2020-09-02] MEDS ORDERED: ceFAZolin SODIUM 1 GM VIAL ONE ×2 (02:25→08:52)
[2020-09-02] MEDS: CEFAZOLIN 1 GM in DEXTROSE 5%-WATER - 50 ML IVPB SCH ×2 (02:27→09:04)
[2020-09-02] MEDS: LACTATED RINGERS SOLUTION 1,000 ML IV SCH ×2 (03:34→13:15)
[2020-09-02 06:49] LABS: BASO % 0.3 % (0-2.0); LYMPH % 5.5 % (8-40); MCH 27.4 pg (25.7-33.7); MCHC 33.3 g/dl (32.0-35.9); MEAN CELL VOLUME 82.5 fl (80-96); MEAN PLT VOLUME 7.8 fl (7.5-11.1); MONO % 6.9 % (3.8-10.2); NEUT % 87.3 % (42.8-82.8); PLATELET COUNT 284 K/MM3 (134-434); RBC 4.36 M/mm3 (4.00-5.60); RDW 14.7 % (11.9-15.9); WHITE BLOOD COUNT 17.9 K/mm3 (4.0-10.0)
[2020-09-02 07:18] LABS: POTASSIUM 3.9 mmol/L (3.5-5.1)
[2020-09-02 07:25] LABS: CALCIUM 8.7 mg/dL (8.5-10.1)
[2020-09-02 07:26] LABS: ALBUMIN 2.8 g/dl (3.4-5.0); BLOOD UREA NITROGEN 20.4 mg/dL (7-18); MAGNESIUM 1.9 mg/dL (1.8-2.4)
[2020-09-02 07:27] LABS: BILIRUBIN,TOTAL 0.5 mg/dL (0.2-1)
[2020-09-02 07:28] LABS: TOT PROT 6.8 g/dl (6.4-8.2)
[2020-09-02 07:29] LABS: CREATININE 1.2 mg/dL (0.55-1.3); PHOSPHOROUS 3.8 mg/dL (2.5-4.9)
[2020-09-02 08:35] LABS: INR 1.05 (0.83-1.09); PROTHROMBIN TIME (PATIENT) 12.7 SEC (9.7-13.0)
[2020-09-02 08:38] LABS: ACTIVATED PTT 28.3 SECONDS (25.2-36.5)
[2020-09-02] MEDS: LORazepam 2 MG/ML SDV VIAL IVPUSH PRN ×2 (08:41→10:30)
[2020-09-02] MEDS: FOLIC ACID 1 MG TABLET (FP) PO SCH (09:26)
[2020-09-02] MEDS: MULTIVITAMINS (DAILY MVI) TABLET (FP) PO SCH (09:27)
[2020-09-02] MEDS: OXcarbazepine 150 MG TABLET (UD) PO SCH ×2 (09:27→22:55)
[2020-09-02] MEDS: THIAMINE HCL 100 MG TABLET (FP) PO SCH (09:28)
[2020-09-02] MEDS ORDERED: PT OWN MED DRAWER 7, Y5N ONE ×2 (09:32→12:29)
[2020-09-02] MEDS: CARBAMIDE PEROXIDE 6.5% OTIC 15 ML BOTTLE AU SCH ×2 (10:08→22:58)
[2020-09-02] MEDS: NICOTINE 21 MG/24 HOURS TOPICAL PATCH TD SCH (10:09)
[2020-09-02] MEDS: BACITRACIN 15 GM TUBE TOPICAL OINTMENT TP SCH ×2 (10:09→22:58)
[2020-09-02] MEDS ORDERED: LORazepam 2 MG/ML SDV VIAL IVPUSH ONE ×2 (10:39)
[2020-09-03] MEDS: SODIUM CHLORIDE IVPB SCH
[2020-09-03] MEDS: NICARDIPINE IVPB SCH
[2020-09-03 07:12] LABS: BASO % 0.4 % (0-2.0); EOS % 0.2 % (0-4.5); HEMATOCRIT 34.1 % (35.4-49); HEMOGLOBIN 11.1 GM/dL (11.7-16.9); LYMPH % 17.2 % (8-40); MCH 27.1 pg (25.7-33.7); MCHC 32.7 g/dl (32.0-35.9); MEAN CELL VOLUME 82.9 fl (80-96); MEAN PLT VOLUME 7.7 fl (7.5-11.1); MONO % 10.1 % (3.8-10.2); NEUT % 72.1 % (42.8-82.8); PLATELET COUNT 255 K/MM3 (134-434); RBC 4.11 M/mm3 (4.00-5.60); RDW 14.6 % (11.9-15.9); WHITE BLOOD COUNT 11.4 K/mm3 (4.0-10.0)
[2020-09-03 07:27] LABS: POTASSIUM 3.4 mmol/L (3.5-5.1)
[2020-09-03 07:40] LABS: ALBUMIN 2.5 g/dl (3.4-5.0); BLOOD UREA NITROGEN 17.8 mg/dL (7-18); CALCIUM 8.8 mg/dL (8.5-10.1); MAGNESIUM 2.1 mg/dL (1.8-2.4)
[2020-09-03 07:43] LABS: CREATININE 0.9 mg/dL (0.55-1.3); PHOSPHOROUS 2.8 mg/dL (2.5-4.9)
[2020-09-03 07:45] LABS: BILIRUBIN,TOTAL 0.9 mg/dL (0.2-1); TOT PROT 6.4 g/dl (6.4-8.2)
[2020-09-03] MEDS ORDERED: POTASSIUM CHLORIDE TABS 20 MEQ TABLET.ER (FP) PO ONE (09:00)
[2020-09-03] MEDS: NICOTINE 21 MG/24 HOURS TOPICAL PATCH TD SCH (09:17)
[2020-09-03] MEDS: MULTIVITAMINS (DAILY MVI) TABLET (FP) PO SCH (09:18)
[2020-09-03] MEDS: THIAMINE HCL 100 MG TABLET (FP) PO SCH (09:18)
[2020-09-03] MEDS: FOLIC ACID 1 MG TABLET (FP) PO SCH (09:18)
[2020-09-03] MEDS: CARBAMIDE PEROXIDE 6.5% OTIC 15 ML BOTTLE AU SCH ×2 (09:20→23:32)
[2020-09-03] MEDS ORDERED: PT OWN MED DRAWER 7, Y5N ONE ×2 (09:22→22:43)
[2020-09-03] MEDS: OXcarbazepine 150 MG TABLET (UD) PO SCH ×2 (09:23→23:32)
[2020-09-03] MEDS: BACITRACIN 15 GM TUBE TOPICAL OINTMENT TP SCH ×2 (09:23→23:30)
[2020-09-03] MEDS ORDERED: NICOTINE 21 MG/24 HOURS TOPICAL PATCH TD SCH (10:14)
[2020-09-03] MEDS: LACTATED RINGERS SOLUTION 1,000 ML IV SCH ×2 (10:27→15:29)
[2020-09-03] MEDS ORDERED: TAMSULOSIN HCL 0.4 MG CAP PO ONE (11:00)
[2020-09-03] MEDS: LOSARTAN POTASSIUM 50 MG TABLET PO SCH (15:29)
[2020-09-03] MEDS ORDERED: ALBUTEROL SO4 HFA INHALER IH PRN (19:17)
[2020-09-04] MEDS ORDERED: TAMSULOSIN HCL 0.4 MG CAP PO SCH (08:30)
[2020-09-04] MEDS: TAMSULOSIN HCL 0.4 MG CAP PO SCH (08:50)
[2020-09-04 08:56] LABS: HEMATOCRIT 32.2 % (35.4-49); HEMOGLOBIN 10.6 GM/dL (11.7-16.9); MEAN CELL VOLUME 84.7 fl (80-96); MEAN PLT VOLUME 7.8 fl (7.5-11.1); PLATELET COUNT 242 K/MM3 (134-434); RBC 3.81 M/mm3 (4.00-5.60); RDW 14.6 % (11.9-15.9); WHITE BLOOD COUNT 8.6 K/mm3 (4.0-10.0)
[2020-09-04 09:20] LABS: POTASSIUM 3.9 mmol/L (3.5-5.1)
[2020-09-04] MEDS ORDERED: PT OWN MED DRAWER 7, Y5N ONE ×4 (09:22→23:21)
[2020-09-04 09:24] LABS: BLOOD UREA NITROGEN 20.2 mg/dL (7-18); CALCIUM 8.8 mg/dL (8.5-10.1)
[2020-09-04 09:27] LABS: CREATININE 0.8 mg/dL (0.55-1.3)
[2020-09-04 09:28] LABS: PHOSPHOROUS 2.8 mg/dL (2.5-4.9)
[2020-09-04] MEDS: THIAMINE HCL 100 MG TABLET (FP) PO SCH (09:40)
[2020-09-04] MEDS: FOLIC ACID 1 MG TABLET (FP) PO SCH (09:40)
[2020-09-04] MEDS: LOSARTAN POTASSIUM 50 MG TABLET PO SCH (09:40)
[2020-09-04] MEDS: MULTIVITAMINS (DAILY MVI) TABLET (FP) PO SCH (09:40)
[2020-09-04] MEDS: BACITRACIN 15 GM TUBE TOPICAL OINTMENT TP SCH ×2 (09:43→21:37)
[2020-09-04] MEDS: CARBAMIDE PEROXIDE 6.5% OTIC 15 ML BOTTLE AU SCH ×2 (09:44→21:39)
[2020-09-04] MEDS: OXcarbazepine 150 MG TABLET (UD) PO SCH ×2 (09:59→22:30)
[2020-09-04] MEDS ORDERED: NICOTINE 21 MG/24 HOURS TOPICAL PATCH TD SCH ×2 (10:14)
[2020-09-04] MEDS: NICOTINE 14 MG/24 HOURS TOPICAL PATCH TD SCH (11:28)
[2020-09-04 17:47] LABS: PH,URINE 6.5 (5.0-8.0); URINE APPEARANCE CLEAR; URINE BILIRUBIN NEGATIVE (NEGATIVE); URINE COLOR YELLOW; URINE GLUCOSE (UA) NEGATIVE (NEGATIVE); URINE KETONE NEGATIVE (NEGATIVE); URINE LEUK ESTERASE NEGATIVE (NEGATIVE); URINE NITRITE NEGATIVE (NEGATIVE); URINE PROTEIN TRACE (NEGATIVE); URINE UROBILINOGEN 0.2 mg/dL (0.2-1.0)
[2020-09-05 08:29] LABS: HEMOGLOBIN 10.1 GM/dL (11.7-16.9); MCH 27.9 pg (25.7-33.7); MCHC 33.7 g/dl (32.0-35.9); MEAN CELL VOLUME 82.8 fl (80-96); MEAN PLT VOLUME 8.1 fl (7.5-11.1); PLATELET COUNT 280 K/MM3 (134-434); RBC 3.62 M/mm3 (4.00-5.60); RDW 14.2 % (11.9-15.9); WHITE BLOOD COUNT 9.2 K/mm3 (4.0-10.0)
[2020-09-05 08:43] LABS: POTASSIUM 3.9 mmol/L (3.5-5.1)
[2020-09-05 08:50] LABS: ALBUMIN 2.4 g/dl (3.4-5.0); BLOOD UREA NITROGEN 19.5 mg/dL (7-18); CALCIUM 8.3 mg/dL (8.5-10.1)
[2020-09-05 08:53] LABS: CREATININE 0.9 mg/dL (0.55-1.3); PHOSPHOROUS 2.9 mg/dL (2.5-4.9)
[2020-09-05 08:54] LABS: BILIRUBIN,TOTAL 0.7 mg/dL (0.2-1); TOT PROT 6.1 g/dl (6.4-8.2)
[2020-09-05] MEDS: TAMSULOSIN HCL 0.4 MG CAP PO SCH (09:51)
[2020-09-05] MEDS: LOSARTAN POTASSIUM 50 MG TABLET PO SCH (09:52)
[2020-09-05] MEDS: FOLIC ACID 1 MG TABLET (FP) PO SCH (09:52)
[2020-09-05] MEDS: THIAMINE HCL 100 MG TABLET (FP) PO SCH (09:52)
[2020-09-05] MEDS: MULTIVITAMINS (DAILY MVI) TABLET (FP) PO SCH (09:52)
[2020-09-05] MEDS: BACITRACIN 15 GM TUBE TOPICAL OINTMENT TP SCH ×2 (09:53→21:47)
[2020-09-05] MEDS: CARBAMIDE PEROXIDE 6.5% OTIC 15 ML BOTTLE AU SCH ×2 (09:54→21:47)
[2020-09-05] MEDS: NICOTINE 14 MG/24 HOURS TOPICAL PATCH TD SCH (09:54)
[2020-09-05] MEDS: OXcarbazepine 150 MG TABLET (UD) PO SCH ×2 (09:55→21:45)
[2020-09-05] MEDS ORDERED: PT OWN MED DRAWER 7, Y5N ONE ×2 (10:09→21:36)
[2020-09-06] MEDS: TAMSULOSIN HCL 0.4 MG CAP PO SCH (08:12)
[2020-09-06] MEDS: FOLIC ACID 1 MG TABLET (FP) PO SCH ×2 (08:13→10:27)
[2020-09-06] MEDS: NICOTINE 14 MG/24 HOURS TOPICAL PATCH TD SCH ×2 (08:13→10:27)
[2020-09-06] MEDS: LOSARTAN POTASSIUM 50 MG TABLET PO SCH ×2 (08:13→10:27)
[2020-09-06] MEDS: MULTIVITAMINS (DAILY MVI) TABLET (FP) PO SCH ×2 (08:13→10:27)
[2020-09-06] MEDS: THIAMINE HCL 100 MG TABLET (FP) PO SCH ×2 (08:13→10:27)
[2020-09-06 08:19] LABS: HEMATOCRIT 31.8 % (35.4-49); HEMOGLOBIN 10.7 GM/dL (11.7-16.9); MCH 27.9 pg (25.7-33.7); MCHC 33.8 g/dl (32.0-35.9); MEAN CELL VOLUME 82.5 fl (80-96); MEAN PLT VOLUME 7.8 fl (7.5-11.1); PLATELET COUNT 349 K/MM3 (134-434); RBC 3.85 M/mm3 (4.00-5.60); RDW 14.7 % (11.9-15.9); WHITE BLOOD COUNT 7.4 K/mm3 (4.0-10.0)
[2020-09-06 08:36] LABS: POTASSIUM 3.7 mmol/L (3.5-5.1)
[2020-09-06 08:39] LABS: BLOOD UREA NITROGEN 22.7 mg/dL (7-18)
[2020-09-06] MEDS ORDERED: PT OWN MED DRAWER 7, Y5N ONE ×2 (09:04→20:59)
[2020-09-06] MEDS: OXcarbazepine 150 MG TABLET (UD) PO SCH ×2 (09:07→21:22)
[2020-09-06] MEDS: CARBAMIDE PEROXIDE 6.5% OTIC 15 ML BOTTLE AU SCH ×2 (09:07→21:22)
[2020-09-06] MEDS: BACITRACIN 15 GM TUBE TOPICAL OINTMENT TP SCH ×2 (09:07→21:21)
[2020-09-06] MEDS ORDERED: BISACODYL 10 MG SUPP.RECT PR PRN (18:02)
[2020-09-06] MEDS ORDERED: SENNOSIDES 8.6MG TABLET (FP) PO PRN (18:02)
[2020-09-06] MEDS: DOCUSATE SODIUM 100 MG CAPSULE (FP) PO PRN (18:25)
[2020-09-07] MEDS: TAMSULOSIN HCL 0.4 MG CAP PO SCH (08:34)
[2020-09-07] MEDS ORDERED: PT OWN MED DRAWER 7, Y5N ONE ×3 (08:55→22:01)
[2020-09-07] MEDS: CARBAMIDE PEROXIDE 6.5% OTIC 15 ML BOTTLE AU SCH ×2 (09:00→22:03)
[2020-09-07] MEDS: THIAMINE HCL 100 MG TABLET (FP) PO SCH (09:01)
[2020-09-07] MEDS: BACITRACIN 15 GM TUBE TOPICAL OINTMENT TP SCH ×2 (09:01→21:57)
[2020-09-07] MEDS: OXcarbazepine 150 MG TABLET (UD) PO SCH ×2 (09:01→22:03)
[2020-09-07] MEDS: FOLIC ACID 1 MG TABLET (FP) PO SCH (09:01)
[2020-09-07] MEDS: LOSARTAN POTASSIUM 50 MG TABLET PO SCH (09:01)
[2020-09-07] MEDS: MULTIVITAMINS (DAILY MVI) TABLET (FP) PO SCH (09:01)
[2020-09-07] MEDS: NICOTINE 14 MG/24 HOURS TOPICAL PATCH TD SCH (09:05)
[2020-09-07] MEDS: ACETAMINOPHEN 325 MG TABLET (FP) PO PRN (21:57)
[2020-09-08 08:41] LABS: HEMATOCRIT 33.5 % (35.4-49); HEMOGLOBIN 11.4 GM/dL (11.7-16.9); MCH 28.2 pg (25.7-33.7); MCHC 33.9 g/dl (32.0-35.9); MEAN CELL VOLUME 83.1 fl (80-96); MEAN PLT VOLUME 7.9 fl (7.5-11.1); PLATELET COUNT 370 K/MM3 (134-434); RBC 4.03 M/mm3 (4.00-5.60); RDW 14.4 % (11.9-15.9); WHITE BLOOD COUNT 7.2 K/mm3 (4.0-10.0)
[2020-09-08 08:54] LABS: POTASSIUM 4.2 mmol/L (3.5-5.1)
[2020-09-08 08:59] LABS: BLOOD UREA NITROGEN 17.8 mg/dL (7-18); CALCIUM 8.9 mg/dL (8.5-10.1); MAGNESIUM 2.1 mg/dL (1.8-2.4)
[2020-09-08 09:02] LABS: PHOSPHOROUS 4.7 mg/dL (2.5-4.9)
[2020-09-08] MEDS: NICOTINE 14 MG/24 HOURS TOPICAL PATCH TD SCH (10:16)
[2020-09-08] MEDS: BACITRACIN 15 GM TUBE TOPICAL OINTMENT TP SCH ×2 (10:17→21:23)
[2020-09-08] MEDS: THIAMINE HCL 100 MG TABLET (FP) PO SCH (10:17)
[2020-09-08] MEDS: MULTIVITAMINS (DAILY MVI) TABLET (FP) PO SCH (10:17)
[2020-09-08] MEDS: FOLIC ACID 1 MG TABLET (FP) PO SCH (10:17)
[2020-09-08] MEDS: TAMSULOSIN HCL 0.4 MG CAP PO SCH (10:17)
[2020-09-08] MEDS: LOSARTAN POTASSIUM 50 MG TABLET PO SCH (10:17)
[2020-09-08] MEDS: OXcarbazepine 150 MG TABLET (UD) PO SCH ×2 (10:18→21:24)
[2020-09-08] MEDS: CARBAMIDE PEROXIDE 6.5% OTIC 15 ML BOTTLE AU SCH ×2 (10:23→21:24)
[2020-09-08] MEDS: ACETAMINOPHEN 325 MG TABLET (FP) PO PRN ×2 (11:42→21:23)
[2020-09-08] MEDS ORDERED: PT OWN MED DRAWER 7, Y5N ONE (21:17)
[2020-09-09 08:09] LABS: HEMATOCRIT 33.4 % (35.4-49); HEMOGLOBIN 11.1 GM/dL (11.7-16.9); MCH 27.1 pg (25.7-33.7); MCHC 33.2 g/dl (32.0-35.9); MEAN CELL VOLUME 81.7 fl (80-96); MEAN PLT VOLUME 7.5 fl (7.5-11.1); PLATELET COUNT 396 K/MM3 (134-434); RBC 4.09 M/mm3 (4.00-5.60); RDW 14.4 % (11.9-15.9); WHITE BLOOD COUNT 7.6 K/mm3 (4.0-10.0)
[2020-09-09 08:14] LABS: POTASSIUM 4.5 mmol/L (3.5-5.1)
[2020-09-09 08:15] LABS: CALCIUM 9.1 mg/dL (8.5-10.1)
[2020-09-09 08:16] LABS: BLOOD UREA NITROGEN 26.9 mg/dL (7-18); MAGNESIUM 2.1 mg/dL (1.8-2.4)
[2020-09-09 08:19] LABS: CREATININE 1.1 mg/dL (0.55-1.3)
[2020-09-09] MEDS ORDERED: PT OWN MED DRAWER 7, Y5N ONE ×3 (09:08→20:45)
[2020-09-09] MEDS: FOLIC ACID 1 MG TABLET (FP) PO SCH (09:10)
[2020-09-09] MEDS: THIAMINE HCL 100 MG TABLET (FP) PO SCH (09:10)
[2020-09-09] MEDS: TAMSULOSIN HCL 0.4 MG CAP PO SCH (09:11)
[2020-09-09] MEDS: LOSARTAN POTASSIUM 50 MG TABLET PO SCH (09:11)
[2020-09-09] MEDS: MULTIVITAMINS (DAILY MVI) TABLET (FP) PO SCH (09:11)
[2020-09-09] MEDS: NICOTINE 14 MG/24 HOURS TOPICAL PATCH TD SCH (09:11)
[2020-09-09] MEDS: OXcarbazepine 150 MG TABLET (UD) PO SCH ×2 (09:11→22:21)
[2020-09-09] MEDS: CARBAMIDE PEROXIDE 6.5% OTIC 15 ML BOTTLE AU SCH (09:13)
[2020-09-09] MEDS: BACITRACIN 15 GM TUBE TOPICAL OINTMENT TP SCH (09:15)
[2020-09-09] MEDS ORDERED: ACETAMINOPHEN 325 MG TABLET (FP) PO PRN (17:05)
[2020-09-10 07:19] LABS: POTASSIUM 4.9 mmol/L (3.5-5.1)
[2020-09-10 07:20] LABS: CALCIUM 9.3 mg/dL (8.5-10.1)
[2020-09-10 07:21] LABS: BLOOD UREA NITROGEN 23.4 mg/dL (7-18)
[2020-09-10] MEDS ORDERED: PT OWN MED DRAWER 7, Y5N ONE ×2 (09:57→20:57)
[2020-09-10] MEDS: LOSARTAN POTASSIUM 50 MG TABLET PO SCH (10:06)
[2020-09-10] MEDS: DOCUSATE SODIUM 100 MG CAPSULE (FP) PO PRN (10:06)
[2020-09-10] MEDS: FOLIC ACID 1 MG TABLET (FP) PO SCH (10:06)
[2020-09-10] MEDS: TAMSULOSIN HCL 0.4 MG CAP PO SCH (10:06)
[2020-09-10] MEDS: MULTIVITAMINS (DAILY MVI) TABLET (FP) PO SCH (10:06)
[2020-09-10] MEDS: NICOTINE 14 MG/24 HOURS TOPICAL PATCH TD SCH (10:06)
[2020-09-10] MEDS: THIAMINE HCL 100 MG TABLET (FP) PO SCH (10:07)
[2020-09-10] MEDS: OXcarbazepine 150 MG TABLET (UD) PO SCH ×2 (10:07→21:56)
[2020-09-11] MEDS: TAMSULOSIN HCL 0.4 MG CAP PO SCH (08:38)
[2020-09-11] MEDS ORDERED: PT OWN MED DRAWER 7, Y5N ONE (09:33)
[2020-09-11] MEDS: LOSARTAN POTASSIUM 50 MG TABLET PO SCH (09:36)
[2020-09-11] MEDS: FOLIC ACID 1 MG TABLET (FP) PO SCH (09:36)
[2020-09-11] MEDS: THIAMINE HCL 100 MG TABLET (FP) PO SCH (09:37)
[2020-09-11] MEDS: NICOTINE 14 MG/24 HOURS TOPICAL PATCH TD SCH (09:37)
[2020-09-11] MEDS: OXcarbazepine 150 MG TABLET (UD) PO SCH (09:37)
[2020-09-11] MEDS: MULTIVITAMINS (DAILY MVI) TABLET (FP) PO SCH (09:37)
[2020-09-11 14:29] VITALS: BP 124/53; PULSE 69; TEMP 98.6
== END 2020-09-11 15:00 | DRG 21 ==
LOC: JER 11:32 → JERBED 18:53 → J6S 08-25 14:29 → JICU 09-01 14:17 → J8W 09-03 19:09
PROVIDERS: ADMIT Internal Medicine; ATTEND Internal Medicine
PROC: 00B60ZZ Excision of Cerebral Ventricle, Open Approach (ICD-10-PCS; principal; 2020-09-01 08:00)
PROC: HZ2ZZZZ Detoxification Services for Substance Abuse Treatment (ICD-10-PCS; 2020-09-02)
DX: D32.0 Benign neoplasm of cerebral meninges (principal); G40.909 Epilepsy, unspecified, not intractable, without status epilepticus; F10.239 Alcohol dependence with withdrawal, unspecified; R26.81 Unsteadiness on feet; F12.10 Cannabis abuse, uncomplicated; K72.90 Hepatic failure, unspecified without coma; F20.9 Schizophrenia, unspecified; F17.210 Nicotine dependence, cigarettes, uncomplicated; R64 Cachexia; Z68.1 Body mass index [BMI] 19.9 or less, adult; E46 Unspecified protein-calorie malnutrition; E88.09 Other disorders of plasma-protein metabolism, not elsewhere classified; B19.10 Unspecified viral hepatitis B without hepatic coma; R55 Syncope and collapse; R50.9 Fever, unspecified; R33.9 Retention of urine, unspecified
CPT/HCPCS: 36415; 70450-TC; 70544-TC; 70551-TC; 70553-TC; 71045-TC-FY; 76705-TC; 80048; 80053; 80177; 80307; 81003; 82140; 82550; 83735; 83930; 83935; 84100; 84443; 84484; 85025; 85027; 85610; 85730; 86850; 86900; 86901; 87040; 87086; 88307-TC; 88331-TC; 88341-TC; 93005; 93010; 94760; 97116-GP; 97162-GP; 99285-25; A9579; C9803; U0003

== ENCOUNTER 2020-09-11 15:40 | Emergency (ER) | payer OTHER ==
[2020-09-11 15:55] VITALS: BMI 20.5
[2020-09-11 17:17] LABS: BASO % 0.7 % (0-2.0); EOS % 1.4 % (0-4.5); HEMATOCRIT 36.9 % (35.4-49); LYMPH % 24.6 % (8-40); MCH 26.8 pg (25.7-33.7); MCHC 32.6 g/dl (32.0-35.9); MEAN CELL VOLUME 82.4 fl (80-96); MEAN PLT VOLUME 6.9 fl (7.5-11.1); MONO % 8.5 % (3.8-10.2); NEUT % 64.8 % (42.8-82.8); PLATELET COUNT 482 K/MM3 (134-434); RBC 4.48 M/mm3 (4.00-5.60); RDW 14.9 % (11.9-15.9); WHITE BLOOD COUNT 9.1 K/mm3 (4.0-10.0)
[2020-09-11 17:36] LABS: CHLORIDE 95 mmol/L (98-107); POTASSIUM 4.6 mmol/L (3.5-5.1); SODIUM 131 mmol/L (136-145)
[2020-09-11 17:38] LABS: CALCIUM 9.7 mg/dL (8.5-10.1)
[2020-09-11 17:39] LABS: ALBUMIN 3.1 g/dl (3.4-5.0); ANION GAP 9 MMOL/L (8-16); BLOOD UREA NITROGEN 32.1 mg/dL (7-18); CO2 27 mmol/L (21-32); GLUCOSE,RANDOM 113 mg/dL (74-106)
[2020-09-11 17:42] LABS: CREATININE 1.2 mg/dL (0.55-1.3); SGOT/AST 13 U/L (15-37); SGPT/ALT 19 U/L (13-61)
[2020-09-11 17:43] LABS: BILIRUBIN,TOTAL 0.3 mg/dL (0.2-1); TOT PROT 7.1 g/dl (6.4-8.2)
[2020-09-11 17:58] LABS: ALK PHOS 111 U/L (45-117)
[2020-09-11 20:34] VITALS: BP 122/73; PULSE 72; TEMP 98.6
== END 2020-09-11 21:50 | disposition home or self-care (01) ==
LOC: JER 15:40
DX: R07.9 Chest pain, unspecified (principal)
CPT/HCPCS: 36415; 71046-TC-FY; 80053; 84484; 85025; 93005; 93010; 99285-25